=== PATIENT | female | born 1985 | race Caucasian/White ===

== ENCOUNTER 2018-09-03 09:16 | Observation (INO) | payer OTHER ==
--- NOTE | 2018-09-02 14:49 | PDGENHP ---
History and Physical History and Physical: Assessment and Plan: 1. Dysmenorrhea Eliza has symptoms and exam highly suggestive of endometriosis. We reviewed all conservative and surgical options. She cannot take the daily pain, she cannot take estrogen for hormonal regulation, I would not recommend an IUD due to her cysts, I would not recommend an Nexplanon due to her irregular bleeding on the progesterone only pills. We discussed orilissa or lupron, but we also discussed that these do not cure endometriosis, though they may reduce her pain for short amount of time. She is not interested in these drugs due to the side effects. At the end of our discussion, she would like to move forward with surgical excision of endometriosis. We discussed that this will be a laparoscopic procedure, and that she will see Dr. Baptiste preoperatively for an exam and preop education. In the meantime, I have refilled her Toradol to take for her periods, and have recommended some nonpharmacologic treatments including topical CBD oil, essential oils, acupuncture, anti-inflammatory diets , and anti-inflammatory supplements. 2. Pelvic pain Subjective: Patient ID: Eliza is a 33 y.o. female who presents to [facility] for endometriosis consult. HPI Eliza Pedro presents for a preoperative visit. She is scheduled for a robotic assisted hysterectomy and excision of endometriosis. The risks, benefits , and alternatives were presented and informed consent was obtained. 40 minutes of this 40 minute appointment was spent counceling, reviewing the procedure in detail, and discussing the preoperative and postoperative instructions. Below is a copy of our prior visit note. Eliza is a 33-year-old para 1, with a history of one miscarriage at 6 weeks. She has a 5-year-old that was born at 36 weeks due to preeclampsia. She found Dr. Baptiste via a online support group, and is here for an endometriosis consult. Terri lives in [facility] which [place] of [place]. Her partner has a vasectomy for contraception. Her last menstrual period was May 18, 2018. Eliza notes that she has been experiencing worsening right-sided pelvic/right lower quadrant pain. She first noticed this a couple of years ago, she had an ultrasound that showed a hemorrhagic cyst on her right ovary. That went away and she had another ultrasound about a year after, that showed no cysts, but she still had pain. That last ultrasound was about 1 year ago. She notes that this pain has been getting worse since then. She has a daily constant pain that is lower in intensity, but feels worse as a pulling sensation if she moves. This pain intensifies on her periods, and becomes sharp, feeling almost as if she is having contractions. And makes it difficult to walk and radiates to her lower back. This also feels like a shooting pain in her rectum on her menses. Her pain has debilitated her somewhat during her periods at this time. She is taking Toradol as needed for this pain on her periods. A provider closer to her home started her on gabapentin, but she could not tolerate the fatigue so she stopped that. She has tried ibuprofen, Tylenol, Aleve and none of these help. Heat does help sometimes, but not really on her period. She is unsure when her menses were started, but does not remember them being to painful or heavy, just a little crampy. At this time, she has regular monthly periods, but the number of the bleeding days has become irregular. She will bleed anywhere from 5-12 days, and days 3-4 are the worst. She was on an oral control, that stopped last month due to headaches, and irregular bleeding. She was taking it continuously but still having menses. It was a progesterone only pill, as she has a history of migraines and cannot take estrogen. She also notes that she has bloating that is worth with worse with her periods, she denies painful bowel movements but she does have constipation and diarrhea alternating with her periods. She has painful intercourse that is sharp and mostly right-sided. She is not interested in her orilissa or Lupron, due to side effects. She would prefer to keep her uterus and ovaries if she is able to. She is to the point where she cannot take the pain anymore. She is to drive her son an hour back and forth to school, and can barely tolerate sitting in the car due to the bumps. She can no longer ride horses or ride ATVs or dirt bikes because of the pain. She works part-time, but would like to work more, but cannot due to the pain. She and her family are looking at moving to [place] within the next year. CURRENT MEDICATIONS: Current Outpatient Medications Medication Sig [id number]-[id number] (FIORICET, ESGIC) 50-300-40 mg capsule ketorolac (TORADOL) 10 mg tablet No current facility-administered medications for this visit. ALLERGIES: Patient has no known allergies. I have reviewed, verified and agree with the past medical, surgical and history as documented by the MA today. Review of Systems Constitutional: Positive for fatigue. Respiratory: Negative. Cardiovascular: Negative. Gastrointestinal: Positive for abdominal distention, abdominal pain, constipation, diarrhea, nausea and rectal pain. Genitourinary: Positive for dyspareunia, menstrual problem, pelvic pain and vaginal pain. Musculoskeletal: Positive for arthralgias and back pain. Skin: Negative. Objective: Vital Signs: Visit Vitals BP 134/72 Pulse 73 Temp 37.1 C (98.8 F) (Temporal) Resp 16 Ht 1.575 m (5' 2") Wt 50.7 kg (111 lb 12.8 oz) SpO2 99% BMI 20.45 kg/m Physical Exam Constitutional: She is oriented to person, place, and time. She appears well- developed and well-nourished. Pulmonary/Chest: Effort normal. Abdominal: Soft. There is tenderness (RLQ). Musculoskeletal: Normal range of motion. Neurological: She is alert and oriented to person, place, and time. Skin: Skin is warm and dry. Psychiatric: She has a normal mood and affect. Her behavior is normal. Pelvic: Normal external genitalia. Non-gaping introitus. No vaginal bleeding or discharge. No cervical lesions or discharge. Tenderness right uterosacral ligament. Uterus anteverted and mobile. Left adnexa nontender and no masses. Right adnexa non-palpated, no masses noted. She has tenderness on palpation of the right adnexa. Procedures DATA: I have reviewed patient's outside medical records. Summary findings include dysmenorrhea TIME/COUNSELING: I personally spent a total of 45 minutes. Of that 45 minutes was counseling/ coordination of patient's care. See my note above for details. Alex Baptiste MD
[2018-09-03] MEDS ORDERED: PHENAZOPYRIDINE HCL 200 MG TAB PO ONE (09:33)
[2018-09-03] MEDS ORDERED: ACETAMINOPHEN 500 MG TAB PO ONE (09:33)
[2018-09-03] MEDS ORDERED: ceFAZolin 2 GM/DEXTROSE 100 ML IV ONE (09:33)
[2018-09-03] MEDS ORDERED: GABAPENTIN 300 MG CAP PO ONE (09:33)
[2018-09-03] MEDS ORDERED: LIDOCAINE 1% 2 ML INJ ID PRN (09:35)
[2018-09-03] MEDS ORDERED: LR 1,000 ML IV ONE (09:35)
[2018-09-03] MEDS ORDERED: MIDAZOLAM 2 MG/2 ML VIAL IVP ONE (10:32)
--- NOTE | 2018-09-03 10:32 | PDANEPAE ---
ANE Past Medical History - Cardiovascular History Hx Hypertension: No Hx Arrhythmias: No Hx Chest Pain: No Hx Coronary Artery / Peripheral Vascular Disease: No Hx CHF / Valvular Disease: No Hx Palpitations: No - Pulmonary History Hx COPD: No Hx Asthma/Reactive Airway Disease: No Hx Recent Upper Respiratory Infection: Yes Hx Oxygen in Use at Home: No Hx Sleep Apnea: No Sleep Apnea Screening Result - Last Documented: Negative Pulmonary History Comment: URI 05/2018 TREATED WITH ANTIBIOTICS. PNEUMONIA 2013 - Neurologic History Hx Cerebrovascular Accident: No Hx Seizures: No Hx Dementia: No - Endocrine History Hx Diabetes: No Hypothyroid: No Hyperthyroid: No Obesity: no - Renal History Hx Renal Disorders: No - Liver History Hx Hepatic Disorders: No - Neurological & Psychiatric Hx Hx Neurological and Psychiatric Disorders: Yes Neurological / Psychiatric History Comment: MIGRAINES TWICE A MONTH - Cancer History Hx Cancer: No - Congenital Disorder History Hx Congenital Disorders: No - GI History GERD: no Hx Gastrointestinal Disorders: No - Other Health History Other Health History: UPPER DENTURES/OVER CROWDED TEETH - Chronic Pain History Chronic Pain: Yes (LOWER RT ABDOMEN) - Surgical History Prior Surgeries: BRICE BREAST AUGMENTATION ANE Review of Systems Review of Systems: - Exercise capacity Exercise capacity: >=4 METS METS (RN): 6 METS ANE Patient History - Allergies Allergies/Adverse Reactions: aspirin Allergy (Verified 09/03/18 10:07) Vomiting - Home Medications Home Medications: Fiorinal 50-325-40 mg Cap PRN 08/08/18 [Last Taken 07/30/18] Toradol 10mg tab PRN 08/08/18 [Last Taken 08/15/18] - NPO status NPO Since - Liquids (Date): 09/03/18 NPO Since - Liquids (Time): 07:30 NPO Since - Solids (Date): 09/02/18 NPO Since - Solids (Time): 19:30 - Anes Hx Anes Hx: post operative nausea and vomiting - Smoking Hx Smoking Status: Never smoked - Alcohol Use Alcohol Use: Rarely - Family Anes Hx Family Anes Hx: neg - N/A ANE Labs/Vital Signs - Vital Signs Height: 157.48 cm Weight: 49.895 kg ANE Physical Exam - Airway Neck exam: FROM Mallampati Score: Class 2 Mouth exam: normal dental/mouth exam - Pulmonary Pulmonary: no respiratory distress, no rales or rhonchi, clear to auscultation - Cardiovascular Cardiovascular: regular rate and rhythym, no murmur, rub, or gallop - ASA Status ASA Status: I ANE Anesthesia Plan Anesthesia Plan: general endotracheal anesthesia Total IV Anesthesia: No
--- NOTE | 2018-09-03 11:10 | PDHPUP ---
History & Physical Update H&P update statement: This history and physical update is based on an assessment of the patient which was completed after admission or registration (within 24 hours), but prior to the surgery/procedure. H&P update: H&P reviewed & patient examined, no change in patient's condition since H&P completed
[2018-09-03] MEDS ORDERED: KETOROLAC 30 MG/1 ML SDV ONE (11:40)
[2018-09-03] MEDS ORDERED: DEXAMETHASONE 4 MG/ML VIAL ONE (11:40)
[2018-09-03] MEDS ORDERED: ROCURONIUM 50 MG/5 ML VIAL ONE (11:40)
[2018-09-03] MEDS ORDERED: fentaNYL 100 MCG/2 ML INJ ONE ×3 (11:40→13:36)
[2018-09-03] MEDS ORDERED: ONDANSETRON 4 MG/2 ML VIAL ONE (11:40)
[2018-09-03] MEDS ORDERED: LIDOCAINE 2% 5 ML SDV ONE (11:41)
[2018-09-03] MEDS ORDERED: PROPOFOL 200 MG/20 ML VIAL ONE (11:43)
[2018-09-03] MEDS ORDERED: BUPIVACAINE/EPI 0.5% 30 ML SDV ONE (11:45)
[2018-09-03] MEDS ORDERED: LR 500 ML IV PRN (12:25)
[2018-09-03] MEDS ORDERED: ONDANSETRON 4 MG/2 ML VIAL IVP PRN ×2 (12:25→13:11)
[2018-09-03] MEDS ORDERED: oxyCODONE IR 5 MG TAB PO PRN (12:25)
[2018-09-03] MEDS ORDERED: PHENYLEPHRINE HCL 100 MCG/ML SYR IVP PRN (12:25)
[2018-09-03] MEDS ORDERED: MEPERIDINE 25 MG/0.5 ML AMP IVP PRN (12:25)
[2018-09-03] MEDS ORDERED: PROMETHAZINE HCL 25 MG/ML INJ IVP PRN ×2 (12:25→13:10)
[2018-09-03] MEDS ORDERED: NALOXONE HCL 0.4 MG/ML INJ IVP PRN (12:25)
[2018-09-03] MEDS ORDERED: HYDROCODONE/APAP 5/325 TAB PO PRN (12:25)
[2018-09-03] MEDS ORDERED: SUGAMMADEX SODIUM 200 MG/2 ML VIAL IVP ONE (12:51)
[2018-09-03] MEDS ORDERED: HYDROmorphONE/DILAUDID 1 MG/ML INJ IVP PRN (13:10)
--- NOTE | 2018-09-03 13:10 | POSTOPPROG ---
Post Op Note Date of Operation: 09/03/18 Surgeon: Alex Baptiste Rim Turning Finisher: Opal Wallace Anesthesia: GET(General Endotracheal) Pre-op Diagnosis: Endometriosis, menorrhagia Post-op Diagnosis: Same Procedure: Robotic hyst/BS/RO, Excise endo, bilat ureterolysis, US Lig colpopexy , L ov Findings: Endo Inf/Abcess present in the surg proc area at time of surgery?: No EBL: Minimal Complications: None
[2018-09-03] MEDS ORDERED: ONDANSETRON DISINTEGRATING 4 MG TAB PO PRN (13:11)
[2018-09-03] MEDS: fentaNYL 100 MCG/2 ML INJ IVP PRN ×4 (13:22→13:57)
[2018-09-03] MEDS ORDERED: LR 1,000 ML IV SCH (13:30)
[2018-09-03] MEDS ORDERED: HYDROmorphONE/DILAUDID 2 MG/ML INJ ONE (13:37)
[2018-09-03] MEDS: HYDROmorphONE/DILAUDID 2 MG/ML INJ IVP PRN ×5 (13:39→14:54)
--- NOTE | 2018-09-03 13:48 | GOP ---
[f rep st] OPERATIVE REPORT DATE OF OPERATION: 09/03/2018 SURGEON: Alex Baptiste MD TRANSCRIPTION COORDINATOR: Opal Wallace CFA. ANESTHESIA: General. PREOPERATIVE DIAGNOSIS: 1. Endometriosis. 2. Menorrhagia. 3. Midcycle pain. 4. Uterine prolapse. POSTOPERATIVE DIAGNOSIS: 1. Endometriosis. 2. Menorrhagia. 3. Midcycle pain. 4. Uterine prolapse. PROCEDURE PERFORMED: 1. Robotic-assisted total laparoscopic hysterectomy, bilateral salpingectomy, right oophorectomy. 2. Bilateral ureterolysis. 3. Excision of endometriosis in the posterior cul-de-sac and bilateral pelvic side appiah. 4. Uterosacral ligament colpopexy. 5. Left ovarian pexy. FINDINGS: SPECIMENS: 1. Uterus, bilateral tubes, right ovary. 1. Pelvic peritoneum with endometriosis. 2. ESTIMATED BLOOD LOSS: Scant. DESCRIPTION OF PROCEDURE: The patient was taken to the operating room where she was identified. Gen eral anesthesia was administered and found to be adequate. She was placed in the lithotomy position and prepared and draped in normal sterile fashion. A Lane catheter was placed in her bladder. A VC are uterine manipulator was placed into the endometrial cavity and sutured to the cervix. A 1 cm infraumbilical incision was made with a scalpel. The Veress needle with the CO2 gas flowing w as advanced into the peritoneal cavity. The abdomen was then insufflated with carbon dioxide gas. T he 12 mm trocar followed by the laparoscope were then inserted. The upper abdomen was unremarkable. There was no evidence of endometriosis on either diaphragm, liver, stomach, gallbladder or upper abd ominal bowel. Two lateral ports were placed in the right and one in the left under direct visualizat ion. She then was placed in Trendelenburg position and the da Anni robot docked on the left side. The instruments were then brought into the abdominal cavity under direct visualization. She had endo metriosis in the posterior cul-de-sac, bilateral pelvic sidewalls as well as several spots on the rig ht ovary and uterine serosa. The left fallopian tube was along the mesosalpinx. The utero-ovarian ligament, followed by the round ligament were then cauterized and transected. The anterior leaf of the broad ligament was then incised over the left uterine vasculature and across the cervix. The bladder was gently dissec torie off the cervix and upper vagina. The left uterine vasculature was then cauterized and transected . The right round ligament was divided. The anterior leaf of the broad ligament was then incised to call the bifurcation of the right common iliac vessels. A window was created in the posterior leaf a nterior to the right ureter to skeletonize the infundibulopelvic vessels. They were then cauterized and transected. The right uterine vasculature was then cauterized and transected. The entire biostatistics director ior cul-de-sac peritoneum from the distal rectum up to the cervix and laterally to the uterosacral li gaments was completely excised. A left ovarian pexy was then performed due to her cyclic pelvic pain . Was attached to the left round ligament, with 3-0 Vicryl Rapide suture. A bilateral ureterolysis was required given her endometriosis overlying both ureters. The peritoneum at the pelvic brims was incised. The ureters were gently dissected free and lateralized off the overlying peritoneum and end ometriosis. They were lateralized from the pelvic brim down to the bladder bilaterally. Once this w as accomplished, the entire pelvic sidewall peritoneum was completely excised. A circumferential col potomy incision was then made with the hot lemuel and all specimens were removed through the vagina. The vaginal cuff closed with a running suture of 0 V-Loc 180. A bilateral uterosacral ligament colp opexy was performed by attaching the lateral aspects of the vaginal cuff to the ipsilateral uterosacr al ligaments near the coccygeal-sacrospinous ligament complexes. The pelvis was then irrigated with sterile saline, and hemostasis was present. The robot was then undocked. The fascia was closed with 0 Vicryl, the skin with 4-0 Monocryl. Anesthesia was reversed and the patient taken to the PACU ricki ke, in stable condition. COMPLICATIONS: None. DISPOSITION: Patient stable to PACU. /[id number]/MODL
[2018-09-03] MEDS ORDERED: OPIUM/BELLADONNA ALKALO SUPP PR ONE (14:15)
--- NOTE | 2018-09-03 14:25 | POSTANESTH ---
Post Anesthetic Evaluation Cardiovascular Status: Normal, Stable Respiratory Status: Normal, Stable Level of Consciousness/Mental Status: Can Participate in Eval Pain Control: Adequate, Prn Tx Ordered Nausea/Vomiting Control: Adequate, Prn Tx Ordered Complications Possibly Related to Anesthesia: None Noted
[2018-09-03] MEDS: GABAPENTIN 300 MG CAP PO SCH ×2 (16:17→22:07)
[2018-09-03] MEDS: HYDROCODONE/APAP 5/325 TAB PO PRN ×2 (16:18→20:16)
[2018-09-03] MEDS: KETOROLAC 30 MG/1 ML SDV IVP SCH (17:58)
[2018-09-03] MEDS: DOCUSATE SODIUM 100 MG CAP PO SCH (20:16)
[2018-09-03] MEDS: SIMETHICONE 80 MG TAB CHEW PO SCH ×2 (22:01→22:07)
[2018-09-04] MEDS: HYDROCODONE/APAP 5/325 TAB PO PRN ×3 (00:04→08:27)
[2018-09-04] MEDS: KETOROLAC 30 MG/1 ML SDV IVP SCH ×3 (00:04→12:07)
[2018-09-04 05:52] LABS: PLATELET COUNT 195 10^3/uL (150-400)
[2018-09-04 08:16] VITALS: BP 97/65
[2018-09-04] MEDS: GABAPENTIN 300 MG CAP PO SCH (08:26)
[2018-09-04] MEDS: SIMETHICONE 80 MG TAB CHEW PO SCH ×2 (08:26→12:15)
[2018-09-04] MEDS: DOCUSATE SODIUM 100 MG CAP PO SCH (08:28)
[2018-09-04] MEDS ORDERED: oxyCODONE IR 5 MG TAB PO ONE (09:30)
[2018-09-04] MEDS ORDERED: oxyCODONE IR 5 MG TAB PO PRN (09:30)
--- NOTE | 2018-09-05 17:00 | GDS ---
[f rep st] DISCHARGE SUMMARY DISCHARGE DIAGNOSES: 1. Endometriosis. 2. Menorrhagia. PROCEDURES: 1. Robotic-assisted total laparoscopic hysterectomy, bilateral salpingectomy, and right oophorectomy . 2. Excision of endometriosis in the posterior cul-de-sac and bilateral pelvic side appiah. 3. Bilateral ureterolysis. 4. Right uterosacral ligament colpopexy. 5. Left ovarian pexy. HISTORY: The patient suffered from heavy and painful menses as well as endometriosis. She was taken to the operating room on 09/03/2018 where she underwent the above-mentioned procedures without compl ications. Her postoperative course was uneventful. She was discharged home on postoperative day #1 in good con dition. Medications included Percocet with oxycodone immediate release for breakthrough pain as well as 4 days of Toradol. She is to follow up in the office 2 weeks after discharge. /[id number]/MODL
== END 2018-09-04 12:45 | disposition home or self-care (01) ==
LOC: FSGY 09:16 → F3N 13:11 → FOB 15:52
PROVIDERS: ADMIT Obstetrics & Gynecology; ATTEND Obstetrics & Gynecology
DX: N80.3 Endometriosis of pelvic peritoneum (principal); N92.6 Irregular menstruation, unspecified; N94.6 Dysmenorrhea, unspecified; R10.2 Pelvic and perineal pain; N94.10 Unspecified dyspareunia
CPT/HCPCS: 57425; 58572; 58662; 58679; G0378; J0690; J1100; J1170; J1885; J2250; J2405; J2550; J2704; J3010